=== PATIENT | male | born 1960 | race Caucasian/White ===

== ENCOUNTER 2019-06-26 04:08 | Inpatient (IN) | payer BC ==
[~2019-06-26] VITALS: Ht 177.8 cm; Wt 94.1 kg
[2019-06-26 04:18] VITALS: BP 104/78
[2019-06-26] MEDS ORDERED: ROSUVASTATIN CA20 MG PO (04:22)
[2019-06-26] MEDS ORDERED: FUROSEMIDE20 M1 PO (04:22)
[2019-06-26 04:23] VITALS: BP 116/85
[2019-06-26] MEDS ORDERED: ASPIRIN CHEWABL81 MG PO (04:23)
[2019-06-26] MEDS ORDERED: LISINOPRIL20 MG PO (04:23)
[2019-06-26 04:32] LABS: BASO # 0.1 10*3/uL (0.0-0.1); BASO % 1.3 % (0.0-1.0); EOS # 0.3 10*3/uL (0.0-0.4); EOS % 2.9 % (1.0-4.0); HEMATOCRIT 48.6 % (42.0-52.0); HEMOGLOBIN 16.6 g/dl (14.0-18.0); LYMPH # 2.6 10*3/uL (1.3-4.4); LYMPH % 27.1 % (27.0-41.0); MEAN CORPUSCULAR HGB 30.1 pg (27.0-31.0); MEAN CORPUSCULAR HGB CONC 34.2 g/dl (33.0-37.0); MEAN PLATELET VOLUME 10.4 fl (9.6-12.3); MONO # 0.8 10*3/uL (0.1-1.0); MONO % 8.7 % (3.0-9.0); NEUT # 5.7 10*3/uL (2.3-7.9); NEUT % 59.4 % (47.0-73.0); PLATELET COUNT AUTOMATED 278 10*3/uL (130-400); RED BLOOD COUNT 5.52 10*6/uL (4.50-5.90); RED CELL DISTRI WIDTH 12.5 % (0-14.5); WHITE BLOOD COUNT 9.6 10*3/uL (4.8-10.8)
[2019-06-26 04:43] LABS: ACT PARTIAL THROMBO TIME 24.5 SECONDS (20.0-32.1)
[2019-06-26 04:48] LABS: ALBUMIN 3.7 gm/dl (3.1-4.5); ALKALINE PHOSPHATASE 108 U/L (45-117); BUN 23 mg/dl (7-24); CHLORIDE 108 mmol/L (98-107); CREATININE 1.22 mg/dL (0.70-1.30); POTASSIUM 3.5 mmol/L (3.5-5.1); SGOT/AST 25 IU/L (3-35); SGPT/ALT 48 U/L (12-78); SODIUM 141 mmol/L (136-145); TOTAL PROTEIN 7.7 gm/dL (6.4-8.2)
[2019-06-26 04:51] LABS: TROPONIN I < 0.015 ng/ml (<0.045)
[2019-06-26 05:56] VITALS: BP 133/91
[2019-06-26 06:07] VITALS: BP 130/70
[2019-06-26 08:00] VITALS: BP 128/72
[2019-06-26] MEDS ORDERED: LOPRESSOR25 MG PO (16:14)
== END 2019-06-26 16:36 | disposition home or self-care (01) | DRG 310 ==
LOC: ED 04:08 → EDHOLD 05:22 → 4E 05:22
PROVIDERS: Emergency Medicine; ADMIT Internal Medicine
PROC: 4A02XM4 Measurement of Cardiac Total Activity, External Approach (ICD-10-PCS; principal; 2019-06-26)
PROC: 3E073KZ Introduction of Other Diagnostic Substance into Coronary Artery, Percutaneous Approach (ICD-10-PCS; principal; 2019-06-26)
DX: I47.1 Supraventricular tachycardia (principal); R07.9 Chest pain, unspecified; F17.210 Nicotine dependence, cigarettes, uncomplicated; E78.5 Hyperlipidemia, unspecified; E87.8 Other disorders of electrolyte and fluid balance, not elsewhere classified; R73.9 Hyperglycemia, unspecified; E83.41 Hypermagnesemia; I25.10 Atherosclerotic heart disease of native coronary artery without angina pectoris; R74.8 Abnormal levels of other serum enzymes; I11.9 Hypertensive heart disease without heart failure; Z79.82 Long term (current) use of aspirin; Z79.899 Other long term (current) drug therapy; Z95.1 Presence of aortocoronary bypass graft; I25.2 Old myocardial infarction; Z83.3 Family history of diabetes mellitus; Z82.49 Family history of ischemic heart disease and other diseases of the circulatory system

== ENCOUNTER 2024-05-27 14:41 | Emergency (ER) | payer BC ==
[~2024-05-27] VITALS: Ht 177.8 cm; Wt 97.5 kg
[~2024-05-27 14:41] MED LIST: ASPIRIN CHEWABL81 MG PO; FUROSEMIDE20 M1 PO; LISINOPRIL20 MG PO; LOPRESSOR25 MG PO; ROSUVASTATIN CA20 MG PO
[2024-05-27] MEDS ORDERED: Ketorolac Tromethamine 30 MG/ML VIAL IM ONE (15:10)
[2024-05-27 15:19] LABS: BASO # 0.1 10*3/uL (0.0-0.1); BASO % 0.6 % (0.0-1.0); EOS # 0.2 10*3/uL (0.0-0.4); EOS % 1.2 % (1.0-4.0); HEMATOCRIT 46.7 % (42.0-52.0); LYMPH % 14.6 % (27.0-41.0); MEAN CELL VOLUME 86.3 fl (80.0-94.0); MEAN CORPUSCULAR HGB 29.4 pg (27.0-31.0); MONO # 1.4 10*3/uL (0.1-1.0); MONO % 9.7 % (3.0-9.0); NEUT # 10.3 10*3/uL (2.3-7.9); NEUT % 73.1 % (47.0-73.0); PLATELET COUNT AUTOMATED 245 10*3/uL (130-400); RED BLOOD COUNT 5.41 10*6/uL (4.50-5.90)
[2024-05-27 15:19] LABS: BILIRUBIN Negative (Negative); BLOOD Negative (Negative); CLARITY Clear (Clear); COLOR Yellow (Yellow); GLUCOSE Trace (Negative); KETONE Trace (Negative); LEUKO ESTERASE Negative (Negative); NITRITE Negative (Negative); PH 5.5 (4.5-8.0); SPECIFIC GRAVITY 1.025 (1.001-1.030)
[2024-05-27 15:29] LABS: EPITHELIAL CELLS 0-2; MUCOUS 2+; RBC 0-2 rbc/hpf (0-2)
[2024-05-27 15:36] LABS: ALKALINE PHOSPHATASE 115 U/L (46-116); BUN 15 mg/dl (9-23); CHLORIDE 106 mmol/L (98-107); LIPASE 28 U/L (12-53); POTASSIUM 3.7 mmol/L (3.4-5.1); SGPT/ALT 31 U/L (5-49); TOTAL PROTEIN 7.6 gm/dL (6.0-8.0)
[2024-05-27] MEDS ORDERED: CIPRO500 MG PO (16:03)
[2024-05-27] MEDS ORDERED: METRONIDAZOLE500 M1 PO (16:03)
== END 2024-05-27 16:09 | disposition home or self-care (01) ==
LOC: ED 14:41
PROVIDERS: Physician Assistant Medical
DX: K57.92 Diverticulitis of intestine, part unspecified, without perforation or abscess without bleeding (principal); I10 Essential (primary) hypertension; E78.5 Hyperlipidemia, unspecified; I25.2 Old myocardial infarction; Z91.013 Allergy to seafood; Z79.899 Other long term (current) drug therapy; Z79.82 Long term (current) use of aspirin; Z98.890 Other specified postprocedural states; Z98.61 Coronary angioplasty status; Z87.891 Personal history of nicotine dependence

== ENCOUNTER 2024-07-19 11:11 | Emergency (ER) | payer BC ==
[~2024-07-19] VITALS: Ht 177.8 cm; Wt 97.1 kg
[~2024-07-19 11:11] MED LIST changes: +CIPRO500 MG PO; +METRONIDAZOLE500 M1 PO
[2024-07-19 11:57] LABS: BASO # 0.1 10*3/uL (0.0-0.1); EOS # 0.3 10*3/uL (0.0-0.4); EOS % 2.3 % (1.0-4.0); HEMATOCRIT 47.4 % (42.0-52.0); LYMPH # 2.3 10*3/uL (1.3-4.4); LYMPH % 18.4 % (27.0-41.0); MEAN CELL VOLUME 86.8 fl (80.0-94.0); MEAN CORPUSCULAR HGB 29.1 pg (27.0-31.0); MEAN CORPUSCULAR HGB CONC 33.5 g/dl (33.0-37.0); MEAN PLATELET VOLUME 9.8 fl (9.6-12.3); MONO % 7.8 % (3.0-9.0); NEUT # 8.7 10*3/uL (2.3-7.9); NEUT % 69.2 % (47.0-73.0); PLATELET COUNT AUTOMATED 261 10*3/uL (130-400); RED BLOOD COUNT 5.46 10*6/uL (4.50-5.90); RED CELL DISTRI WIDTH 13.1 % (0-14.5); WHITE BLOOD COUNT 12.6 10*3/uL (4.8-10.8)
[2024-07-19 12:08] LABS: ACT PARTIAL THROMBO TIME 23.9 SECONDS (20.0-32.1)
[2024-07-19 12:12] LABS: BUN 18 mg/dl (9-23); CHLORIDE 106 mmol/L (98-107); POTASSIUM 3.5 mmol/L (3.4-5.1)
== END 2024-07-19 14:30 | disposition home or self-care (01) ==
LOC: ED 11:11
PROVIDERS: Physician Assistant Medical
DX: R06.00 Dyspnea, unspecified (principal); I10 Essential (primary) hypertension; E78.5 Hyperlipidemia, unspecified; I25.2 Old myocardial infarction; E11.9 Type 2 diabetes mellitus without complications; I25.10 Atherosclerotic heart disease of native coronary artery without angina pectoris; Z79.4 Long term (current) use of insulin; Z91.013 Allergy to seafood; Z98.890 Other specified postprocedural states; Z87.891 Personal history of nicotine dependence